=== PATIENT | female | born 2000 | race Caucasian/White ===

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

== ENCOUNTER → 2021-07-15 | Outpatient (CLI) | payer OTHER ==
[~2021-07-15] MED LIST changes: +AMOCLA875 PO
[2021-07-15 15:05] LABS: BASOPHILS ABSOLUTE AUTO 0.03 K/mm3 (0.00-0.23); BASOPHILS PERCENT AUTO 0 % (0-2); EOSINOPHILS PERCENT AUTO 1 % (0-6); Hematocrit 35.2 % (33.0-51.0); Hemoglobin 12.1 g/dL (11.5-16.0); IMMATURE GRAN ABSOLUTE AUTO 0.05 K/mm3 (0.00-0.10); IMMATURE GRAN PERCENT AUTO 1 % (0-1); LYMPHOCYTES ABSOLUTE AUTO 1.36 K/mm3 (0.84-5.20); LYMPHOCYTES PERCENT AUTO 13 % (21-46); MONOCYTES ABSOLUTE AUTO 0.53 K/mm3 (0.16-1.47); MONOCYTES PERCENT AUTO 5 % (4-13); Mean Corpuscular HGB 32.2 pg (26.0-34.0); Mean Corpuscular HGB Conc 34.4 g/dL (31.5-36.5); Mean Corpuscular Volume 94 fL (80-100); NEUTROPHILS ABSOLUTE AUTO 8.81 K/mm3 (1.96-9.15); NEUTROPHILS PERCENT AUTO 81 % (41-73); Platelet Count 251 K/mm3 (150-400); RDW Coefficient Variation 12.4 % (11.7-14.2); RDW Standard Deviation 42.8 fL (35.1-46.3); Red Blood Cell Count 3.76 M/mm3 (3.80-5.20); White Blood Cell Count 10.88 K/mm3 (4.00-11.30)
== END | disposition home or self-care (01) ==
LOC: LAB 10:20 → LAB SHORT 10:20
PROVIDERS: Advanced Practice Midwife
DX: Z33.1 Pregnant state, incidental (principal)
CPT/HCPCS: 82950; 85025

== ENCOUNTER → 2021-07-26 | Outpatient (CLI) | payer OTHER ==
[2021-07-27 09:37] LABS: Candida species (DNA Probe) Negative (NEGATIVE); G. vaginalis (DNA Probe) Negative (NEGATIVE); T. vaginalis (DNA Probe) Negative (NEGATIVE)
== END | disposition home or self-care (01) ==
LOC: LAB 16:24 → LAB SHORT 16:24
PROVIDERS: Advanced Practice Midwife
DX: N76.0 Acute vaginitis (principal)
CPT/HCPCS: 87480; 87510; 87660

== ENCOUNTER → 2021-08-26 | Outpatient (CLI) | payer OTHER ==
[2021-08-26 16:57] LABS: Source, Urine Voided
[2021-08-26 18:54] LABS: Appearance, Urine Clear (Clear); Bilirubin, Urine Neg (Neg); Blood, Urine Neg (Neg); Color, Urine Yellow (P-Yellow); Glucose Qualitative, Urine Neg (Neg); Ketones, Urine Neg (Neg); Leukocyte Esterase, Urine 1+ (Neg); Nitrite, Urine Neg (Neg); Protein, Urine Neg (Neg); Specific Gravity, Urine 1.005 (1.003-1.022); Urobilinogen, Urine NORM (Normal)
[2021-08-26 20:17] LABS: Bacteria Rare /hpf; Red Blood Cells, Urine Not Seen /hpf (0-2); Squamous Epithelial Cells Few /hpf (Few); White Blood Cells, Urine 0-2 /hpf (0-5)
== END | disposition home or self-care (01) ==
LOC: LAB 15:27 → LAB SHORT 15:27
PROVIDERS: Advanced Practice Midwife
DX: Z34.83 Encounter for supervision of other normal pregnancy, third trimester (principal)
CPT/HCPCS: 81001

== ENCOUNTER → 2021-09-06 | Outpatient (CLI) | payer OTHER | END | disposition home or self-care (01) | LOC: LAB SHORT 18:48 → LAB 18:48 | DX: Z34.83 Encounter for supervision of other normal pregnancy, third trimester (principal) | CPT/HCPCS: 87081; 87150 ==

== ENCOUNTER → 2021-09-09 | Outpatient (CLI) | payer OTHER ==
[2021-09-10 11:02] LABS: Candida species (DNA Probe) Negative (NEGATIVE); G. vaginalis (DNA Probe) Positive (NEGATIVE); T. vaginalis (DNA Probe) Negative (NEGATIVE)
== END | disposition home or self-care (01) ==
LOC: LAB SHORT 15:52 → LAB 15:52
PROVIDERS: Advanced Practice Midwife
DX: N76.0 Acute vaginitis (principal)
CPT/HCPCS: 87480; 87510; 87660

== ENCOUNTER 2021-10-04 04:52 | Inpatient (IN) | payer OTHER ==
[~2021-10-04] VITALS: Ht 167.6 cm; Wt 83.0 kg
[2021-10-04 11:20] LABS: BASOPHILS ABSOLUTE AUTO 0.03 K/mm3 (0.00-0.23); BASOPHILS PERCENT AUTO 0 % (0-2); EOSINOPHILS ABSOLUTE AUTO 0.09 K/mm3 (0.00-0.68); EOSINOPHILS PERCENT AUTO 1 % (0-6); Hematocrit 34.6 % (33.0-51.0); Hemoglobin 12.1 g/dL (11.5-16.0); IMMATURE GRAN ABSOLUTE AUTO 0.04 K/mm3 (0.00-0.10); IMMATURE GRAN PERCENT AUTO 0 % (0-1); LYMPHOCYTES ABSOLUTE AUTO 1.56 K/mm3 (0.84-5.20); LYMPHOCYTES PERCENT AUTO 15 % (21-46); MONOCYTES ABSOLUTE AUTO 0.81 K/mm3 (0.16-1.47); MONOCYTES PERCENT AUTO 8 % (4-13); Mean Corpuscular HGB 31.8 pg (26.0-34.0); Mean Corpuscular Volume 91 fL (80-100); NEUTROPHILS ABSOLUTE AUTO 7.59 K/mm3 (1.96-9.15); NEUTROPHILS PERCENT AUTO 75 % (41-73); RDW Coefficient Variation 12.8 % (11.7-14.2); RDW Standard Deviation 41.7 fL (35.1-46.3); White Blood Cell Count 10.12 K/mm3 (4.00-11.30)
[2021-10-04 11:45] LABS: Mean Platelet Volume 10.8 fL (9.1-12.4); Platelet Count 259 K/mm3 (150-400)
--- NOTE | 2021-10-05 18:41 | NUR ---
PT DISCHARGED HOME WITH NB. D/C TEACHING COMPLETED, ALL QUESTIONS AND CONCERNS ANSWERED. IV REMOVED. PT DECLINES FLU SHOT. PPFU SCHEDULED FOR 10/08/21 AT 9 AM.
== END 2021-10-05 18:56 | disposition home or self-care (01) | DRG 807 ==
LOC: OBS 04:52 → BC 04:52 → OBS 04:53 → BC 04:54
PROVIDERS: ADMIT Advanced Practice Midwife
PROC: 10E0XZZ Delivery of Products of Conception, External Approach (ICD-10-PCS; principal; 2021-10-04)
PROC: 10907ZC Drainage of Amniotic Fluid, Therapeutic from Products of Conception, Via Natural or Artificial Opening (ICD-10-PCS; 2021-10-04)
PROC: 3E033VJ Introduction of Other Hormone into Peripheral Vein, Percutaneous Approach (ICD-10-PCS; 2021-10-04)
PROC: 3E0R3BZ Introduction of Anesthetic Agent into Spinal Canal, Percutaneous Approach (ICD-10-PCS; 2021-10-04)
PROC: 00HU33Z Insertion of Infusion Device into Spinal Canal, Percutaneous Approach (ICD-10-PCS; 2021-10-04)
DX: O99.324 Drug use complicating childbirth (principal); Z37.0 Single live birth; F12.90 Cannabis use, unspecified, uncomplicated; O99.334 Smoking (tobacco) complicating childbirth; O76 Abnormality in fetal heart rate and rhythm complicating labor and delivery; O69.81X0 Labor and delivery complicated by cord around neck, without compression, not applicable or unspecified; O26.893 Other specified pregnancy related conditions, third trimester; F17.290 Nicotine dependence, other tobacco product, uncomplicated; Z3A.40 40 weeks gestation of pregnancy; Z67.21 Type B blood, Rh negative; Z28.21 Immunization not carried out because of patient refusal
CPT/HCPCS: 36415; 85025; 86850; 86900; 86901; A9270; J1885; J2001; J2210; J2405; J2590; J3010; J7120

== ENCOUNTER → 2022-01-17 | Outpatient (CLI) | payer OTHER ==
[2022-01-19 01:07] LABS: CHLAMYDIA TRACHOMATIS, NAA Negative (Negative)
== END | disposition home or self-care (01) ==
LOC: LAB SHORT 16:35 → LAB 16:35
PROVIDERS: Advanced Practice Midwife
DX: Z11.3 Encounter for screening for infections with a predominantly sexual mode of transmission (principal)
CPT/HCPCS: 87491; 87591

== ENCOUNTER → 2023-09-22 | Outpatient (CLI) | payer OTHER | LOC: LAB 18:40 → LAB SHORT 18:40 | DX: N39.0 Urinary tract infection, site not specified (principal) | CPT/HCPCS: 87077; 87086; 87186 ==

== ENCOUNTER → 2023-11-17 | Outpatient (CLI) | payer OTHER ==
[2023-11-17 15:18] LABS: Candida species (DNA Probe) Negative (NEGATIVE); G. vaginalis (DNA Probe) Negative (NEGATIVE); T. vaginalis (DNA Probe) Negative (NEGATIVE)
[2023-11-20 06:03] LABS: APTIMA MEDIA TYPE Unisex Swab; C. TRACHOMATIS BY TMA Negative (Negative); N. GONORRHOEAE BY TMA Negative (Negative); SPECIMEN SOURCE Vaginal
== END | disposition home or self-care (01) ==
LOC: LAB 11:24 → LAB SHORT 11:24
PROVIDERS: Advanced Practice Midwife
DX: Z11.3 Encounter for screening for infections with a predominantly sexual mode of transmission (principal); N76.0 Acute vaginitis
CPT/HCPCS: 87480; 87491; 87510; 87591; 87660

== ENCOUNTER 2024-03-15 16:06 | Emergency (ER) | payer OTHER ==
[~2024-03-15] VITALS: Ht 167.6 cm; Wt 66.2 kg
[2024-03-15] MEDS ORDERED: Acetaminophen 500 MG Tab PO ONE (17:05)
[2024-03-15] MEDS ORDERED: Metoclopramide HCl 10 MG Tab PO ONE (17:05)
[2024-03-15] MEDS ORDERED: DiphenhydrAMINE HCL 25 MG Cap PO ONE (17:05)
[2024-03-15 17:16] LABS: BASOPHILS ABSOLUTE AUTO 0.04 K/mm3 (0.00-0.23); BASOPHILS PERCENT AUTO 0 % (0-2); EOSINOPHILS ABSOLUTE AUTO 0.02 K/mm3 (0.00-0.68); EOSINOPHILS PERCENT AUTO 0 % (0-6); Hematocrit 41.5 % (33.0-51.0); Hemoglobin 14.9 g/dL (11.5-16.0); IMMATURE GRAN ABSOLUTE AUTO 0.05 K/mm3 (0.00-0.10); IMMATURE GRAN PERCENT AUTO 0 % (0-1); LYMPHOCYTES ABSOLUTE AUTO 1.73 K/mm3 (0.84-5.20); LYMPHOCYTES PERCENT AUTO 15 % (21-46); MONOCYTES ABSOLUTE AUTO 0.73 K/mm3 (0.16-1.47); MONOCYTES PERCENT AUTO 6 % (4-13); Mean Corpuscular HGB 31.8 pg (26.0-34.0); Mean Corpuscular HGB Conc 35.9 g/dL (31.5-36.5); Mean Corpuscular Volume 89 fL (80-100); Mean Platelet Volume 10.7 fL (9.1-12.4); NEUTROPHILS ABSOLUTE AUTO 8.85 K/mm3 (1.96-9.15); NEUTROPHILS PERCENT AUTO 78 % (41-73); Platelet Count 285 K/mm3 (150-400); RDW Coefficient Variation 11.8 % (11.7-14.2); Red Blood Cell Count 4.68 M/mm3 (3.80-5.20); White Blood Cell Count 11.42 K/mm3 (4.00-11.30)
[2024-03-15 17:18] LABS: Source, Urine Clean Catch
[2024-03-15 17:21] LABS: Appearance, Urine Hazy (Clear); Bilirubin, Urine Neg (Neg); Blood, Urine 3+ (Neg); Color, Urine Yellow (P-Yellow); Glucose Qualitative, Urine Neg (Neg); Ketones, Urine 3+ (Neg); Leukocyte Esterase, Urine 3+ (Neg); Nitrite, Urine Neg (Neg); Protein, Urine 2+ (Neg); Specific Gravity, Urine 1.025 (1.003-1.022); Urobilinogen, Urine 1+ (Normal)
[2024-03-15 17:30] VITALS: BP 121/70
[2024-03-15 17:37] LABS: Amorphous Light (0-Heavy); Bacteria Mod /hpf; Mucus Mod (0-Heavy); Squamous Epithelial Cells Many /hpf (Few)
[2024-03-15 17:59] LABS: Albumin, Blood 4.4 g/dL (3.4-5.0); Albumin/Globulin Ratio 1.1 (0.8-1.8); Bilirubin, Total 0.6 mg/dL (0.1-1.0); Bun/Creatinine Ratio 21.3 (12.0-20.0); Calcium, Blood 9.8 mg/dL (8.5-10.1); Creatinine, Blood 0.61 mg/dL (0.40-1.00); Globulin, Blood 4.1 g/dL (2.2-4.0); Potassium, Blood 3.6 mmol/L (3.5-5.5); Total Protein, Blood 8.5 g/dL (6.4-8.2)
[2024-03-15] MEDS ORDERED: BENADRYL25 MG PO (18:32)
[2024-03-15] MEDS ORDERED: PROM25 PO (18:32)
== END 2024-03-15 18:39 | disposition home or self-care (01) ==
LOC: ER 16:06
PROVIDERS: Student in an Organized Health Care Education/Training Program
DX: O21.9 Vomiting of pregnancy, unspecified (principal); O99.331 Smoking (tobacco) complicating pregnancy, first trimester; F17.290 Nicotine dependence, other tobacco product, uncomplicated; Z3A.01 Less than 8 weeks gestation of pregnancy
CPT/HCPCS: 76801; 76817; 80053; 81001; 84702; 85025; 86900; 86901; 87086; 99284-25; A9270

== ENCOUNTER → 2024-05-29 | Outpatient (CLI) | payer OTHER ==
[~2024-05-29] MED LIST changes: +BENADRYL25 MG PO; +PROM25 PO
[2024-05-29 15:58] LABS: Bacterial Vaginosis PCR Negative (NEGATIVE); Candida Group, PCR NOT DETECTED (NOT DETECT)
[2024-05-29 16:00] LABS: Candida glabrata-krusei, PCR DETECTED (NOT DETECT)
[2024-06-02 06:31] LABS: C. TRACHOMATIS BY TMA,THINPREP Negative (Negative); N. GONORRHOEAE BY TMA,THINPREP Negative (Negative); SPECIMEN SOURCE CERVIX
== END ==
LOC: LAB 11:24 → LAB SHORT 11:24
PROVIDERS: Advanced Practice Midwife
DX: Z11.3 Encounter for screening for infections with a predominantly sexual mode of transmission (principal); Z01.419 Encounter for gynecological examination (general) (routine) without abnormal findings; N76.0 Acute vaginitis; B96.89 Other specified bacterial agents as the cause of diseases classified elsewhere
CPT/HCPCS: 87481; 87491; 87591; 87661; 87801; G0123

== ENCOUNTER → 2024-07-10 | Outpatient (CLI) | payer OTHER ==
[2024-07-10 14:42] LABS: Bacterial Vaginosis PCR Negative (NEGATIVE); Candida Group, PCR NOT DETECTED (NOT DETECT); Candida glabrata-krusei, PCR NOT DETECTED (NOT DETECT)
[2024-07-13 05:36] LABS: APTIMA MEDIA TYPE Unisex Swab; C. TRACHOMATIS BY TMA Negative (Negative); N. GONORRHOEAE BY TMA Negative (Negative); SPECIMEN SOURCE Cervical
== END | disposition home or self-care (01) ==
LOC: LAB 11:11 → LAB SHORT 11:11
PROVIDERS: Advanced Practice Midwife
DX: Z11.3 Encounter for screening for infections with a predominantly sexual mode of transmission (principal)
CPT/HCPCS: 87481; 87491; 87591; 87661; 87801

== ENCOUNTER 2024-10-23 08:25 | Emergency (ER) | payer OTHER ==
[~2024-10-23] VITALS: Ht 167.6 cm; Wt 78.5 kg
[2024-10-23 09:12] VITALS: BP 112/82
[2024-10-23 09:17] LABS: BASOPHILS ABSOLUTE AUTO 0.01 K/mm3 (0.00-0.23); BASOPHILS PERCENT AUTO 0 % (0-2); EOSINOPHILS ABSOLUTE AUTO 0.04 K/mm3 (0.00-0.68); EOSINOPHILS PERCENT AUTO 1 % (0-6); Hematocrit 35.2 % (33.0-51.0); Hemoglobin 12.1 g/dL (11.5-16.0); IMMATURE GRAN ABSOLUTE AUTO 0.03 K/mm3 (0.00-0.10); IMMATURE GRAN PERCENT AUTO 0 % (0-1); LYMPHOCYTES ABSOLUTE AUTO 1.31 K/mm3 (0.84-5.20); LYMPHOCYTES PERCENT AUTO 15 % (21-46); MONOCYTES ABSOLUTE AUTO 0.52 K/mm3 (0.16-1.47); MONOCYTES PERCENT AUTO 6 % (4-13); Mean Corpuscular HGB Conc 34.4 g/dL (31.5-36.5); Mean Corpuscular Volume 96 fL (80-100); Mean Platelet Volume 10.8 fL (9.1-12.4); NEUTROPHILS ABSOLUTE AUTO 6.57 K/mm3 (1.96-9.15); NEUTROPHILS PERCENT AUTO 78 % (41-73); Platelet Count 191 K/mm3 (150-400); RDW Coefficient Variation 12.7 % (11.7-14.2); RDW Standard Deviation 44.6 fL (35.1-46.3); Red Blood Cell Count 3.67 M/mm3 (3.80-5.20); White Blood Cell Count 8.48 K/mm3 (4.00-11.30)
[2024-10-23 09:29] LABS: Magnesium, Blood 1.6 mg/dL (1.6-2.4)
[2024-10-23 09:30] LABS: Alanine Aminotransfer (ALT/SGP 42 U/L (12-78); Albumin, Blood 2.2 g/dL (3.4-5.0); Albumin/Globulin Ratio 0.5 (0.8-1.8); Alk Phos 176 U/L (50-136); Anion Gap 10 mmol/L (3-11); Aspartate Aminotrans (AST/SGOT 28 U/L (12-37); Bilirubin, Direct <0.1 mg/dL (0.0-0.3); Bilirubin, Indirect Unable to Calculate mg/dL (0.1-0.7); Bilirubin, Total 0.2 mg/dL (0.1-1.0); Blood Urea Nitrogen 9 mg/dL (8-24); Bun/Creatinine Ratio 15.7 (12.0-20.0); CO2, Blood 24 mmol/L (21-32); Calcium, Blood 8.3 mg/dL (8.5-10.1); Chloride, Blood 110 mmol/L (98-108); Creatinine, Blood 0.57 mg/dL (0.40-1.00); Globulin, Blood 4.1 g/dL (2.2-4.0); Glomerular Filtration Rate 131 (60-); Glucose, Blood 81 mg/dL (70-99); Potassium, Blood 3.7 mmol/L (3.5-5.5); Sodium, Blood 140 mmol/L (136-145); Total Protein, Blood 6.3 g/dL (6.4-8.2)
== END 2024-10-23 10:24 | disposition home or self-care (01) ==
LOC: ER 08:25
PROVIDERS: Physician Assistant
DX: O21.8 Other vomiting complicating pregnancy (principal); K92.0 Hematemesis; Z79.899 Other long term (current) drug therapy; Z3A.37 37 weeks gestation of pregnancy
CPT/HCPCS: 80048; 80076; 83735; 85025; 99283

== ENCOUNTER 2024-11-01 07:01 | Inpatient (IN) | payer OTHER ==
[~2024-11-01] VITALS: Ht 167.6 cm; Wt 78.0 kg
[2024-11-01] VITALS (18 sets, daily range): BP systolic 102–141; BP diastolic 55–84
[2024-11-01] MEDS ORDERED: OXYTOCIN/RINGER'S LACTATE 500 ML IV SCH ×2 (07:40→15:05)
[2024-11-01] MEDS ORDERED: Lactated Ringer's 1,000 ML IV PRN (07:40)
[2024-11-01] MEDS ORDERED: Acetaminophen 500 MG Tab PO PRN ×2 (07:40→15:00)
[2024-11-01] MEDS ORDERED: Methylergonovine Maleate 0.2MG / ML 1ML Amp IM PRN ×2 (07:40→15:05)
[2024-11-01] MEDS ORDERED: Carboprost Tromethamine 250 MCG/ML 1ML Amp IM PRN ×2 (07:40→15:00)
[2024-11-01] MEDS ORDERED: Lactated Ringer's 1,000 ML IV SCH ×3 (07:40→15:05)
[2024-11-01] MEDS ORDERED: Oxytocin 10 Unit / ML Vial IM PRN (07:40)
[2024-11-01] MEDS ORDERED: Ondansetron HCl 2 MG / ML 2ML Vial IV PRN (07:40)
[2024-11-01] MEDS ORDERED: Misoprostol 200 MCG Tab BC PRN (07:40)
[2024-11-01] MEDS ORDERED: OXYTOCIN/RINGER'S LACTATE 500 ML IV PRN (07:40)
[2024-11-01] MEDS ORDERED: Misoprostol 200 MCG Tab PR PRN ×2 (07:40→15:05)
[2024-11-01] MEDS ORDERED: Calcium Carbonate 500 MG Tab Chew PO PRN (07:45)
[2024-11-01] MEDS ORDERED: Tranexamic Acid 1,000 MG in NS 100 ML IV SCH (07:50)
[2024-11-01 08:23] LABS: BASOPHILS ABSOLUTE AUTO 0.03 K/mm3 (0.00-0.23); BASOPHILS PERCENT AUTO 0 % (0-2); EOSINOPHILS ABSOLUTE AUTO 0.05 K/mm3 (0.00-0.68); EOSINOPHILS PERCENT AUTO 1 % (0-6); Hematocrit 36.7 % (33.0-51.0); Hemoglobin 12.9 g/dL (11.5-16.0); IMMATURE GRAN ABSOLUTE AUTO 0.02 K/mm3 (0.00-0.10); IMMATURE GRAN PERCENT AUTO 0 % (0-1); LYMPHOCYTES PERCENT AUTO 15 % (21-46); MONOCYTES ABSOLUTE AUTO 0.67 K/mm3 (0.16-1.47); MONOCYTES PERCENT AUTO 7 % (4-13); Mean Corpuscular HGB 32.5 pg (26.0-34.0); Mean Corpuscular HGB Conc 35.1 g/dL (31.5-36.5); Mean Corpuscular Volume 92 fL (80-100); Mean Platelet Volume 11.1 fL (9.1-12.4); NEUTROPHILS ABSOLUTE AUTO 7.88 K/mm3 (1.96-9.15); NEUTROPHILS PERCENT AUTO 78 % (41-73); Platelet Count 221 K/mm3 (150-400); RDW Coefficient Variation 12.5 % (11.7-14.2); RDW Standard Deviation 42.5 fL (35.1-46.3); Red Blood Cell Count 3.97 M/mm3 (3.80-5.20); White Blood Cell Count 10.15 K/mm3 (4.00-11.30)
[2024-11-01] MEDS ORDERED: BUSP10 PO (08:45)
[2024-11-01] MEDS ORDERED: PRENATAL TABLE1 EAC2 PO (08:46)
[2024-11-01] MEDS ORDERED: PROP10 PO (08:46)
[2024-11-01] MEDS ORDERED: FentaNYL Citrate 50 MCG/ML 2 ML Injection IV PRN (09:45)
[2024-11-01] MEDS ORDERED: FentaNYL 2mcg/ml-Bup 0.1% Epd 250 ML EPI PRN (10:50)
[2024-11-01] MEDS ORDERED: ePHEDrine Sulfate 50 MG/ML 1ML Injection XX PRN (10:50)
[2024-11-01] MEDS ORDERED: Docusate Sodium 100 MG Cap PO PRN (15:00)
[2024-11-01] MEDS ORDERED: Benzocaine Topical Anesthetic Spray 60GM TOP PRN (15:00)
[2024-11-01] MEDS ORDERED: Measles/Mumps/Rubella Vaccine 0.5 ML Vial SC SCH (15:05)
[2024-11-01] MEDS ORDERED: Rho(D) Immune Globulin 300 MCG / SYR IM ONE (15:05)
[2024-11-01] MEDS ORDERED: Ketorolac Tromethamine 30mg Vial IV PRN (15:05)
[2024-11-01] MEDS ORDERED: Witch Hazel/Glycerin PADS TOP PRN (15:10)
[2024-11-01] MEDS ORDERED: FLU VACC TS2024-25(6MOS UP)/PF 45 MCG/0.5 ML SYRINGE IM SCH (15:10)
[2024-11-01] MEDS ORDERED: Ibuprofen 400 MG Tab PO PRN (15:10)
--- NOTE | 2024-11-01 17:59 | NUR ---
1745 - Patient called out for RN to assess bleeding on pad in [facility]. Patient reports getting up around 1715 to void and changed pad at that time. Pad saturated with medium blood clot also present. QBL 260. Fundus assessed - firm with massage. New pad weighed - 65. Patient instructed to notify RN of any other bleeding concerns. Patient understands and agrees.
[2024-11-02 04:23] VITALS: BP 109/62
[2024-11-02 07:50] VITALS: BP 116/65
[2024-11-02] MEDS ORDERED: Prenatal Vit/FE Fumarate/FA 1 Tab PO SCH (09:00)
[2024-11-02] MEDS ORDERED: DOCU100 PO (11:15)
[2024-11-02] MEDS ORDERED: IBUP100S PO (11:16)
--- NOTE | 2024-11-02 13:00 | NUR ---
report to antione huang
[2024-11-02 13:27] VITALS: BP 132/70
--- NOTE | 2024-11-02 15:02 | NUR ---
ASSUMED CARE AT 1300
[2024-11-02 15:53] VITALS: BP 128/71
== END 2024-11-02 16:15 | disposition home or self-care (01) | DRG 806 ==
LOC: OBS 07:01 → BC 07:02 → OBS 07:17 → BC 07:20
PROVIDERS: ADMIT Advanced Practice Midwife
PROC: 10E0XZZ Delivery of Products of Conception, External Approach (ICD-10-PCS; principal; 2024-11-01)
PROC: 10907ZC Drainage of Amniotic Fluid, Therapeutic from Products of Conception, Via Natural or Artificial Opening (ICD-10-PCS; 2024-11-01)
PROC: 3E033VJ Introduction of Other Hormone into Peripheral Vein, Percutaneous Approach (ICD-10-PCS; 2024-11-01)
DX: O26.643 Intrahepatic cholestasis of pregnancy, third trimester (principal); O99.324 Drug use complicating childbirth; Z37.0 Single live birth; E78.79 Other disorders of bile acid and cholesterol metabolism; K76.89 Other specified diseases of liver; O26.893 Other specified pregnancy related conditions, third trimester; Z3A.38 38 weeks gestation of pregnancy; O99.344 Other mental disorders complicating childbirth; F41.9 Anxiety disorder, unspecified; F12.10 Cannabis abuse, uncomplicated; Z87.891 Personal history of nicotine dependence; Z79.2 Long term (current) use of antibiotics; Z67.21 Type B blood, Rh negative
CPT/HCPCS: 36415; 85025; 86850; 86870; 86900; 86901; A9270; J1885; J2590; J3010; J7120

== ENCOUNTER → 2025-04-07 | Outpatient (CLI) | payer OTHER ==
[~2025-04-07] MED LIST changes: +BUSP10 PO; +IBUP100S PO; +PRENATAL TABLE1 EAC2 PO; +PROP10 PO
[2025-04-07 11:17] LABS: Source, Urine Clean Catch
[2025-04-07 13:15] LABS: Bacteria Many /hpf; Red Blood Cells, Urine 0-2 /hpf (0-2); Squamous Epithelial Cells Many /hpf (Few)
[2025-04-07 13:26] LABS: U Amphetamine Screen Not Detected; U Barbituate Screen Not Detected; U Benzodiazapine Screen Not Detected; U Buprenorphine Screen Not Detected; U Cannabinoids Screen DETECTED; U Cocaine Screen Not Detected; U Methadone Screen Not Detected; U Methamphetamine Screen Not Detected; U Opiates Screen Not Detected; U Oxycodone Screen Not Detected; U Phencyclidine Screen Not Detected
== END | disposition home or self-care (01) ==
LOC: LAB 11:13 → LAB SHORT 11:13
PROVIDERS: Advanced Practice Midwife
DX: Z34.81 Encounter for supervision of other normal pregnancy, first trimester (principal)
CPT/HCPCS: 81015; 87086; 87147

== ENCOUNTER → 2025-10-21 | Outpatient (CLI) | payer OTHER ==
[2025-10-21 15:20] LABS: Bacterial Vaginosis PCR Negative (NEGATIVE); Candida glabrata-krusei, PCR NOT DETECTED (NOT DETECT)
[2025-10-21 15:29] LABS: Candida Group, PCR DETECTED (NOT DETECT)
== END | disposition home or self-care (01) ==
LOC: LAB SHORT 10:27 → LAB 10:27
PROVIDERS: Advanced Practice Midwife
DX: N76.0 Acute vaginitis (principal)
CPT/HCPCS: 81515

== ENCOUNTER 2025-11-04 06:58 | Inpatient (IN) | payer OTHER ==
[~2025-11-04] VITALS: Ht 170.2 cm; Wt 86.0 kg
[2025-11-04] VITALS (9 sets, daily range): BP systolic 90–125; BP diastolic 55–77
[2025-11-04] MEDS ORDERED: OXYTOCIN/RINGER'S LACTATE 500 ML IV PRN (07:05)
[2025-11-04] MEDS ORDERED: Tranexamic Acid 100 ML IV SCH (07:05)
[2025-11-04] MEDS ORDERED: Oxytocin 10 Unit / ML Vial IM PRN (07:05)
[2025-11-04] MEDS ORDERED: Carboprost Tromethamine 250 MCG/ML 1ML Amp IM PRN (07:05)
[2025-11-04] MEDS ORDERED: Methylergonovine Maleate 0.2MG / ML 1ML Amp IM PRN ×2 (07:05→16:50)
[2025-11-04] MEDS ORDERED: OXYTOCIN/RINGER'S LACTATE 500 ML IV SCH ×2 (07:05→16:55)
[2025-11-04] MEDS ORDERED: Ondansetron HCl 2 MG / ML 2ML Vial IV PRN (07:05)
[2025-11-04] MEDS ORDERED: FentaNYL Citrate 50 MCG/ML 2 ML Injection IV ONE (07:40)
[2025-11-04] MEDS ORDERED: ePHEDrine Sulfate 50 MG/ML 1ML Injection XX PRN (07:40)
[2025-11-04] MEDS ORDERED: FentaNYL 2mcg/ml-Bup 0.1% Epd 250 ML EPI PRN (07:40)
[2025-11-04] MEDS ORDERED: Penicillin G Potassium 5,000,000 UNITS in NS 250 ML IV ONE (08:40)
[2025-11-04 08:52] LABS: BASOPHILS ABSOLUTE AUTO 0.02 K/mm3 (0.00-0.23); BASOPHILS PERCENT AUTO 0 % (0-2); EOSINOPHILS ABSOLUTE AUTO 0.09 K/mm3 (0.00-0.68); EOSINOPHILS PERCENT AUTO 1 % (0-6); Hematocrit 34.5 % (33.0-51.0); Hemoglobin 11.8 g/dL (11.5-16.0); IMMATURE GRAN ABSOLUTE AUTO 0.03 K/mm3 (0.00-0.10); IMMATURE GRAN PERCENT AUTO 0 % (0-1); LYMPHOCYTES ABSOLUTE AUTO 1.57 K/mm3 (0.84-5.20); LYMPHOCYTES PERCENT AUTO 17 % (21-46); MONOCYTES ABSOLUTE AUTO 0.64 K/mm3 (0.16-1.47); MONOCYTES PERCENT AUTO 7 % (4-13); Mean Corpuscular HGB Conc 34.2 g/dL (31.5-36.5); Mean Corpuscular Volume 89 fL (80-100); NEUTROPHILS ABSOLUTE AUTO 6.70 K/mm3 (1.96-9.15); NEUTROPHILS PERCENT AUTO 74 % (41-73); NRBC ABSOLUTE 0.00 K/mm3 (0.00-0.02); NRBC Auto 0.0 /100 WBC (0.0-0.2); Platelet Count 228 K/mm3 (150-400); RDW Coefficient Variation 12.7 % (11.7-14.2); RDW Standard Deviation 41.4 fL (35.1-46.3)
[2025-11-04] MEDS ORDERED: Penicillin G Potassium 2,500,000 UNITS in Dextrose 5% 100 ML IV SCH (13:00)
[2025-11-04] MEDS ORDERED: FentaNYL Citrate 50 MCG/ML 2 ML Injection ONE (15:52)
[2025-11-04] MEDS ORDERED: Witch Hazel/Glycerin PADS TOP PRN (16:55)
[2025-11-04] MEDS ORDERED: Ketorolac Tromethamine 30mg Vial IV PRN (16:55)
[2025-11-04] MEDS ORDERED: Rho(D) Immune Globulin 300 MCG / SYR IM ONE (16:55)
[2025-11-04] MEDS ORDERED: FLU VACC TS2025-26(6MOS UP)/PF 45 MCG/0.5 ML SYRINGE IM SCH (16:55)
[2025-11-04] MEDS ORDERED: Benzocaine Topical Anesthetic Spray 60GM TOP PRN (17:00)
--- NOTE | 2025-11-04 21:44 | NUR ---
RN AND VP CUSTOMER SERVICE NOTIFIED DR. RIOS OF PT RECIEVING RHOGAM FROM PREVIOUS SHIFT RN WHEN IT WAS NOT NEEDED/REQUIRED. DR. RIOS UNCONCERNED AT THIS TIME AND NO ORDERS WERE GIVEN AT THIS TIME.
[2025-11-05 01:33] VITALS: BP 101/68
[2025-11-05 05:14] VITALS: BP 101/60
[2025-11-05 07:43] VITALS: BP 128/64
[2025-11-05] MEDS ORDERED: Prenatal Vit/FE Fumarate/FA 1 Tab PO SCH (09:00)
== END 2025-11-05 17:20 | disposition home or self-care (01) | DRG 807 ==
LOC: OBS 06:58 → BC 07:00 → OBS 07:05 → BC 07:10
PROVIDERS: ADMIT Advanced Practice Midwife
PROC: 4A1HXCZ Monitoring of Products of Conception, Cardiac Rate, External Approach (ICD-10-PCS; 2025-11-02)
PROC: 10907ZC Drainage of Amniotic Fluid, Therapeutic from Products of Conception, Via Natural or Artificial Opening (ICD-10-PCS; 2025-11-02)
PROC: 3E033VJ Introduction of Other Hormone into Peripheral Vein, Percutaneous Approach (ICD-10-PCS; 2025-11-02)
PROC: 00HU33Z Insertion of Infusion Device into Spinal Canal, Percutaneous Approach (ICD-10-PCS; 2025-11-02)
PROC: 3E0R3BZ Introduction of Anesthetic Agent into Spinal Canal, Percutaneous Approach (ICD-10-PCS; 2025-11-02)
PROC: 10E0XZZ Delivery of Products of Conception, External Approach (ICD-10-PCS; principal; 2025-11-04)
PROC: 3E0234Z Introduction of Serum, Toxoid and Vaccine into Muscle, Percutaneous Approach (ICD-10-PCS; 2025-11-04)
DX: O99.824 Streptococcus B carrier state complicating childbirth (principal); Z37.0 Single live birth; O99.344 Other mental disorders complicating childbirth; F41.9 Anxiety disorder, unspecified; O99.324 Drug use complicating childbirth; F12.90 Cannabis use, unspecified, uncomplicated; O26.893 Other specified pregnancy related conditions, third trimester; O69.81X0 Labor and delivery complicated by cord around neck, without compression, not applicable or unspecified; Z67.21 Type B blood, Rh negative; Z87.59 Personal history of other complications of pregnancy, childbirth and the puerperium; Z3A.38 38 weeks gestation of pregnancy; Z23 Encounter for immunization
CPT/HCPCS: 36415; 59414; 85025; 86850; 86900; 86901; A9270; J1885; J2540; J2590; J2791; J3010; J7050; J7120